=== PATIENT | female | born 1960 | race Caucasian/White ===

== ENCOUNTER 2017-03-08 11:28 | Emergency (ER) | payer OTHER ==
[2017-03-08 12:33] VITALS: BP 139/82
--- NOTE | 2017-03-08 14:06 | UC ---
Back Pain HPI - HPI Summary HPI Summary: 56 year old female with back pain . She twisted the wrong way moving a deer. pt states while lifting something a few days ago began having right lower back pain. Describes pain as constant aching worse upon waking in the morning. Has been treating with ibuprofen. no sciatica, no incontinence, no radiating pain. no weakness in the leg. [ End ] - History of Current Complaint Chief Complaint: UCBackPain Stated Complaint: LOWER BACK PAIN Time Seen by Provider: 03/08/17 12:16 Hx Obtained From: Patient Hx Last Menstrual Period: n/a Onset/Duration: Sudden Onset Timing: Intermittent Pain Intensity: 7 Pain Scale Used: 0-10 Numeric Character: Spasmodic, Stiffness Aggravating Factor(s): Movement Alleviating Factor(s): Rest Associated Signs And Symptoms: Positive: Negative - Risk Factors Cauda Equina Risk Factors: Negative - Allergies/Home Medications Allergies/Adverse Reactions: Allergies Allergy/AdvReac Type Severity Reaction Status Date / Time No Known Allergies Allergy Verified 03/08/17 12:33 Home Medications: Home Medications Acetaminophen [Acetaminophen Extra Stren] 1,500 mg PO ONCE 03/08/17 [History Confirmed 03/08/17] PMH/Surg Hx/FS Hx/Imm Hx Previously Healthy: Yes - Surgical History Surgical History: Yes Surgery Procedure, Year, and Place: cyst removal 1996 - Family History Known Family History: Positive: None - Social History Occupation: Employed Full-time Lives: With Family Alcohol Use: Occasionally Substance Use Type: None Smoking Status (MU): Never Smoked Tobacco - Immunization History Most Recent Influenza Vaccination: no Review of Systems Musculoskeletal: Decreased ROM, Myalgia Is Patient Immunocompromised?: No All Other Systems Reviewed And Are Negative: Yes Physical Exam Triage Information Reviewed: Yes Appearance: Well-Appearing, Well-Nourished Vital Signs: Initial Vital Signs Temp 98 F 03/08/17 12:29 Pulse 72 03/08/17 12:29 Resp 14 03/08/17 12:29 BP 139/82 03/08/17 12:29 Pulse Ox 100 03/08/17 12:29 Vital Signs Reviewed: Yes Eye Exam: Normal ENT Exam: Normal Dental Exam: Normal Neck exam: Normal Neck: Positive: 1 Respiratory Exam: Normal Cardiovascular Exam: Normal Musculoskeletal Exam: Normal Musculoskeletal: Positive: Strength Intact, ROM Intact, Other: - right sided paraspinal tenderness to palpation L3-4, no sp tenderness, no step offs, neg SLR , can walk on toe and heel. DTRs normal . FROM of the legs. Antalgic gait Neurological Exam: Normal Psychological Exam: Normal Skin Exam: Normal Back Pain Course/Dx - Course Course Of Treatment: No red flags. No trauma. Pain present for 3-4 days. Musclular at this time. Given PT referral and back exercises . f/u with PCP. Can use motrin and APAP, discussed limits of meds and not to use multiple NSAIDs - Differential Dx/Diagnosis Differential Diagnosis/HQI/PQRI: Herniated Disc, Strain, Sprain Provider Diagnoses: Back strain Discharge - Discharge Plan Condition: Good Disposition: HOME Prescriptions: Cyclobenzaprine TAB* [Flexeril 10 MG TAB*] 10 mg PO BID PRN #14 tab PRN Reason: Spasms Ibuprofen TAB* [Motrin TAB* 600 MG] 600 mg PO Q8H PRN #30 tab PRN Reason: Pain Patient Education Materials: Low Back Strain (ED), Lower Back Exercises (ED) Referrals: Mica Clay PA [Physician Attendance Secretary] -
== END 2017-03-08 12:51 | disposition home or self-care (01) ==
LOC: UCCORT 11:28
DX: S39.012A Strain of muscle, fascia and tendon of lower back, initial encounter (principal); X50.0XXA Overexertion from strenuous movement or load, initial encounter; Y93.9 Activity, unspecified; Y92.9 Unspecified place or not applicable; Y99.9 Unspecified external cause status
CPT/HCPCS: 99202; G0463